=== PATIENT | male | born 1965 | race Caucasian/White ===

== ENCOUNTER 2021-03-01 02:25 | Emergency (ER) | payer BC, SELFPAY ==
--- NOTE | ~2021-03-01 | CT_ITS ---
EXAMINATION: CT abdomen pelvis wo con DATE: 03/01/2021 03:35 INDICATION: Bilateral flank pain. History of kidney stones. TECHNIQUE: Computed tomography (CT) of the abdomen and pelvis was performed without intravenous contr ast. The dose-length product was 229.53 mGy-cm. Automated exposure control and iterative reconstructi on technique were employed. COMPARISON: None. FINDINGS: Right lower lobe atelectasis. Heart size normal. No significant pleural or pericardial effusion. Elev ation of the right diaphragm, suspicious for phrenic nerve paralysis. Small hiatal hernia. There are 2 left mid ureteral stones with mild left hydroureteronephrosis, perinephric edema. Largest stone more proximally measures 5 mm. The liver, spleen, pancreas, adrenal glands and right kidney are unremarkable. There is nonobstructiv e bowel gas pattern. There is a fat-containing umbilical hernia. No significant vascular abnormality. No lymphadenopathy. Nonobstructive bowel gas pattern. Normal appendix. There is subtle chitra appeara nce to the mesentery without associated lymphadenopathy, of doubtful clinical significance. There are persistent surgical changes with laminectomy at L5-S1. IMPRESSION: 1. Left mid ureteral stones with mild hydroureteronephrosis. Stones located at the L4-L5 levels. Reviewed, dictated and finalized at location A.
--- NOTE | ~2021-03-01 | XR_ITS ---
XR abdomen/kub 1V 03/01/2021 04:03 Indication: Kidney stone Procedure: KUB Comparison: CT dated 03/01/2021 Findings: There is a proximal left ureteral stone at the L5 level. Stone measures approximately 5 mm. Bowel gas pattern nonobstructive. Surgical fusion changes with laminectomy at L5-S1. Impression: 1: Proximal left ureteral stone at L5 level measuring 5 mm. Reviewed, dictated and finalized at location A. Impression: 1: Proximal left ureteral stone at L5 level measuring 5 mm.
[2021-03-01 02:27] VITALS: BP 135/76; PULSE 64; RESP 24; TEMP 36.2; O2SAT 100
--- NOTE | 2021-03-01 03:26 | PC.NURSE ---
Pt to CT via stretcher at this time.
[2021-03-01 03:28] LABS: Basophils Absolute Auto 0.1 K/mm3 (0.0-0.1); Basophils Percent Auto 0.8 % (0.2-1.2); Eosinophils Absolute Auto 0.1 K/mm3 (0-0.3); Eosinophils Percent Auto 1.2 % (0-4.4); Hematocrit 49.9 % (42.0-52.0); Hemoglobin 16.6 g/dL (14.0-18.0); Immature Granulocyte Absolute 0.03 K/mm3 (0.00-0.031); Immature Granulocyte Percent A 0.3 % (0-0.5); Lymphocytes Absolute Auto 2.91 K/mm3 (0.9-3.2); Lymphocytes Percent Auto 28.8 % (18.3-44.2); Mean Corpuscular HGB Conc 33.3 g/dl (32-36); Mean Corpuscular Hemoglobin 29.5 pg (26-34); Mean Corpuscular Volume 88.8 fl (80-100); Mean Platelet Volume 10.1 fl (7.4-10.4); Monocytes Absolute Auto 0.7 K/mm3 (0.1-0.6); Monocytes Percent Auto 6.7 % (2.6-8.5); Neutrophils Absolute Auto 6.3 K/mm3 (1.3-6.7); Neutrophils Percent Auto 62.2 % (45.5-73.1); Platelet Count Result 332 k/mm3 (150-375); Red Blood Count 5.62 M/mm3 (4.6-6.20); Red Cell Distribution Width 12.4 % (11.5-14.5); White Blood Count 10.1 K/mm3 (4.5-10.0)
[2021-03-01] MEDS: SODIUM CHLORIDE 0.9% IV 1,000 ML 999 ML IV CONT (03:38)
[2021-03-01 03:39] LABS: Alanine Aminotransferase 32 U/L (4-50); Albumin Level 4.5 g/dL (3.5-5.1); Alkaline Phosphatase 80 U/L (38-126); Anion Gap 13 mmol/L (8-16); Aspartate Amino Transferase 32 U/L (17-59); Blood Urea Nitrogen 22 mg/dL (9-20); Calcium 9.6 mg/dL (8.4-10.2); Carbon Dioxide 24 mmol/L (22-30); Chloride 101 mmol/L (98-107); Estimated CRCL calculation 66 ml/min; Estimated Glomerular Filt Rate > 60; Glucose 133 mg/dL (65-110); Lipase 263 U/L (23-300); Potassium 4.2 mmol/L (3.4-5.0); Sodium 138 mmol/L (137-145)
[2021-03-01] MEDS: ONDANSETRON INJ 4 MG/2 ML VIAL IV PUSH (03:50)
[2021-03-01] MEDS: KETOROLAC 30 MG/ML VIAL (*BKC) IV PUSH (03:50)
[2021-03-01] MEDS: MORPHINE SULFATE (*CRX) 4 MG/ML INJ IV PUSH (03:50)
--- NOTE | 2021-03-01 04:06 | ED.MALEGU ---
HPI - Male Genitourinary General Chief complaint: Urogenital-Male Stated complaint: flank pain Time Seen by Provider: 03/01/21 03:03 History of Present Illness HPI Narrative: Severe paroxysmal left falnk pain since last night. No raidation. Worse with urination Associated with nausea and vomiting. Feels like past kidney stone. No hematuria, dysuria, abdominal pain, fever, CP, SOB. Related Data Home Medications Medication Instructions Recorded Confirmed aspirin 81 mg tablet,delayed 81 mg PO DAILY 01/31/21 03/06/21 release krill oil 1,000 mg-om3 130 mg-dha 1 cap PO DAILY 01/31/21 03/06/21 40 mg-epa 80 [id number]-astax cap Allergies Allergy/AdvReac Type Severity Reaction Status Date / Time No Known Allergies Allergy Verified 01/31/21 14:47 Review of Systems Review of Systems: All systems reviewed & are unremarkable except as noted in HPI and below Cardiovascular: Cardiovascular: Denies chest pain Respiratory: Respiratory: Denies dyspnea Gastrointestinal: Gastrointestinal: Denies abdominal pain, Denies constipation and Denies diarrhea Genitourinary: Genitourinary: Denies hematuria and Denies dysuria Neurologic: Denies dizziness and Denies weakness PMFSH Past Medical History Medical History Smoker Ureterolithiasis Family History Family History Father Hypertension Patient's father is in good health Family history of cardiovascular disease Heart disease Mother Patient's mother is in good health Sibling Patient's sister is in good health Social History Social History Years smoked: 2 Smoking status: Current every day smoker Tobacco type: e-cigarettes/vaping Alcohol intake: current Substance use: never Substance use type: does not use Gender identity (if verbalized by the patient): Male Spiritual care concerns: No Exam Const: General: healthy appearing and alert Orientation/consciousness: patient oriented x3 Other: Mild distress, diaphoretic HENMT: Head: normal to inspection Neck: Neck: normal visual inspection Resp: Effort & Inspection: normal respiratory effort Auscultation: clear to auscultation bilaterally Cardio: Rate: regular rate Rhythm: regular rhythm GI: Inspection: non-distended GI Palp: Yes Soft to palpation and No Tenderness to palpation present (GI) Skin: General skin exam: normal color Neuro: General: patient oriented x3, moves all extremities and no focal motor deficits Extrem: General: normal to inspection Course Vital Signs Vital signs: Vital Signs Temperature 36.2 C L 03/01/21 02:27 Pulse Rate 64 03/01/21 02:27 Respiratory Rate 24 H 03/01/21 02:27 Blood Pressure 135/76 03/01/21 02:27 Pulse Oximetry 100 03/01/21 02:27 Temperature 36.2 C L 03/01/21 02:27 Pulse Rate 66 03/01/21 05:44 Respiratory Rate 14 03/01/21 05:44 Blood Pressure 112/72 03/01/21 05:44 Pulse Oximetry 96 03/01/21 05:44 MDM - Male Genitourinary Differential Diagnosis Differential diagnosis: Likely urinary tract infection, acute retention of urine and other (kidney stone) Medical Records Attestation: I reviewed the patient's medical records. Lab Data Attestation: I reviewed the patient's lab results. Result diagrams: 03/01/21 03:22 03/01/21 03:22 Labs: Lab Results 03/01/21 03/01/21 03/01/21 Range/Units 03:22 03:22 04:29 WBC 10.1 H (4.5-10.0) K/mm3 RBC 5.62 (4.6-6.20) M/mm3 Hgb 16.6 (14.0-18.0) g/dL Hct 49.9 (42.0-52.0) % MCV 88.8 (80-100) fl MCH 29.5 (26-34) pg MCHC 33.3 (32-36) g/dl RDW 12.4 (11.5-14.5) % Plt Count 332 (150-375) k/mm3 MPV 10.1 (7.4-10.4) fl Immature Gran % (Auto) 0.3 (0-0.5) % Neut % (Auto) 62.2 (45.5-73.1) % Lymph % (Auto) 28.8 (18.3-44.2)
[2021-03-01] MEDS: TAMSULOSIN HCL 0.4 MG CAPSULE PO (04:22)
[2021-03-01 04:24] VITALS: BP 114/75; PULSE 74; RESP 16; O2SAT 93
[2021-03-01 04:43] LABS: Add Urine Microscopic? YES; Appearance Urine Clear (Clear); Bilirubin Urine Negative (Negative); Blood Urine 2+ (Negative); Color Urine Yellow (Yellow); Glucose Urine UA Negative (Negative); Ketones Urine Negative (Negative); Leukocyte Esterase Ur Negative LEU/UL (Negative); Mucus Urine Rare /lpf; Nitrate Urine Negative (Negative); Protein Urine Negative (Negative); RBC Urine 21-50 /hpf (0-2); Specific Grav Ur 1.018 (1.001-1.035); Urobilinogen Urine Negative mg/dL (<2.0); WBC Urine 0-3 /hpf
[2021-03-01] MEDS: HYDROcodone/acetaminophen (*CRX) 5-325 MG TABLET 1 TAB PO (05:30)
[2021-03-01 05:44] VITALS: BP 112/72; PULSE 66; RESP 14; O2SAT 96
== END 2021-03-01 05:55 | disposition home or self-care (01) ==
PROVIDERS: Emergency Provider Emergency Medicine; PCP Family Medicine
DX: N13.2 Hydronephrosis with renal and ureteral calculous obstruction (principal); F17.290 Nicotine dependence, other tobacco product, uncomplicated; Z87.442 Personal history of urinary calculi
CPT/HCPCS: 36415; 74018; 74176; 80053; 81001; 83690; 85025; 96361; 96374; 96375; 99284; A9270; J1885; J2270; J2405; J7030

== ENCOUNTER 2021-03-04 14:53 | Outpatient (CLI) | payer BC, SELFPAY ==
--- NOTE | ~2021-03-04 | XR_ITS ---
EXAMINATION: XR abdomen/kub 1V DATE: 03/04/2021 15:13 INDICATION: Left ureteral stone. Left-sided back pain. TECHNIQUE: A supine view of the abdomen on 2 radiographs was obtained. COMPARISON: CT abdomen and pelvis 03/01/2021 FINDINGS: There are no dilated loops of bowel. There are changes of anterior and posterior fusion pro cedures at L5-S1. IMPRESSION: 1. No visible urolithiasis. Reviewed, dictated and finalized at location A. IMPRESSION: 1. No visible urolithiasis.
== END 2021-03-04 14:54 | disposition home or self-care (01) ==
LOC: ANHIMG 14:58
PROVIDERS: PCP Family Medicine; Visit Provider Urology
DX: N20.1 Calculus of ureter (principal)
CPT/HCPCS: 74018

== ENCOUNTER 2021-03-07 01:58 | Day surgery (SDC) | payer BC, SELFPAY ==
[2021-03-06 09:38] VITALS: BMI 24.3
--- NOTE | 2021-03-06 14:58 | WPDANESEPPF ---
Anes - Initial Pre Proc Eval Procedure: Operation Date: 03/07/21 15:30 Proposed Procedures p Cystoscopy, Left Ureteroscopy, Left Retrograde Pyelogram, Left Stone Extraction, Left Stent Placement - Alok Montalvo MD s Holmium Laser Procedure - Alok Montalvo MD Date/Time: 03/06/21 14:58 Surgeon: Alok Montalvo MD Pre Op Diagnosis: Left Ureteral Kidney Stone Patient Data Age: 55 Gender: M Height: 1.78 m Weight: 77 kg Allergies Allergy/AdvReac Type Severity Reaction Status Date / Time No Known Allergies Allergy Verified 01/31/21 14:47 Home Medications Medication Instructions Recorded Confirmed Type aspirin 81 mg tablet,delayed 81 mg PO DAILY 01/31/21 03/06/21 History release krill oil 1,000 mg-om3 130 mg-dha 1 cap PO DAILY 01/31/21 03/06/21 History 40 mg-epa 80 [id number]-astax cap hydrocodone-acetaminophen 1 tablet PO Q6H PRN #14 tablet 03/01/21 03/06/21 Rx ondansetron HCl [Zofran] 4 mg PO Q6H PRN #10 tablet 03/01/21 03/06/21 Rx tamsulosin [Flomax] 0.4 mg PO DAILY #10 cap 03/01/21 03/06/21 Rx Patient hx anesthesia problems: none Family hx anesthesia problems: none PMFSH Past Medical History Medical History (Updated 03/06/21 @ 14:59 by Brendan Mcclelland MD) Smoker Ureterolithiasis Family History Family History Father Hypertension Patient's father is in good health Family history of cardiovascular disease Heart disease Mother Patient's mother is in good health Sibling Patient's sister is in good health Social History Social History Years smoked: 2 Smoking status: Current every day smoker Tobacco type: e-cigarettes/vaping Alcohol intake: current Substance use: never Substance use type: does not use Gender identity (if verbalized by the patient): Male Spiritual care concerns: No Anes - Eval Final PreProcedure Day of Procedure 03/06/21 14:58 Patient weight: normal Heart: regular rate and rhythm Lungs: clear to auscultation and normal air movement Airway: Mallampati scale class II Neurological: alert and oriented Last oral intake: >/= 8 hours ASA classification: II Emergent: no Anesthetic plan: proceed Anesthesia type and monitoring: general LMA Informed Consent: The patient's anesthetic plan and its attendant risks and benefits were discussed with the patient/family/POA. Questions were solicited and answers provided to the satisfaction of the patient/family/POA.
[2021-03-07] VITALS (10 sets, daily range): BP systolic 97–143; BP diastolic 68–83; PULSE 56–72; RESP 13–16; TEMP 36.3–37; O2SAT 91–100; BMI 25.8
--- NOTE | ~2021-03-07 | XR_ITS ---
EXAMINATION: XR retrograde pyelogram LT DATE: 03/07/2021 15:52 INDICATION: Left ureteral stone. TECHNIQUE: 5 intraoperative fluoroscopic views of the abdomen and pelvis were obtained. I was not pre sent. Fluoroscopy exposure time was 29 seconds. COMPARISON: CT abdomen and pelvis 03/01/2021 FINDINGS: The left-sided retrograde pyelogram is unremarkable. There are changes of anterior and post erior fusion procedure at L5-S1. IMPRESSION: 1. Normal left-sided retrograde pyelogram. Reviewed, dictated and finalized at location A.
--- NOTE | 2021-03-07 14:38 | WPDHPUPDATE1 ---
History and Physical Update Update Date/Time: 03/07/21 14:38 History and Physical has been reviewed, including an updated exam of the patient. There are NO changes in the patient's condition. Risks, benefits, and alternatives have been discussed and questions answered. Patient agrees to proceed with procedure.
[2021-03-07] MEDS: LACTATED RINGERS 1,000 ML 30 ML IV CONT ×2 (15:01→16:06)
[2021-03-07] MEDS: ceFAZolin 2 GM/D5W 50 ML 2 GM/50 ML BAG IVPB (15:26)
[2021-03-07] MEDS: LIDOCAINE HCL 2% GEL UROJET 10 ML PKG MUCOUS MEM (15:43)
--- NOTE | 2021-03-07 16:22 | W.PM.PROC2 ---
Procedure Note - Detailed Date of Procedure 03/07/21 Pre-op Diagnosis Left Ureteral Stone Post-op Diagnosis same Procedure Performed Cystoscopy, left retrograde pyelography and left ureteral re-endoscopy Surgeon Alok Montalvo MD Anesthesia general Findings no residual stones in left collecting system her left ureter, suggesting he spontaneously passed recently. Description of Procedure Patient is brought to the op suite where he has prepped draped in routine sterile fashion while in dorsal lithotomy position after the uneventful induction of a general LMA anesthetic. Cystoscopy is undertaken with a 19 F rigid cystoscope. Urethra was without stricture and prostate shows only minimal hyperplasia. The bladder is without foreign body or neoplasm. There is no intravesical mucosal abnormalities. Has a single orthotopic ureteral orifice. 0.035 in glidewire was advanced into his left renal pelvis. Distal ureter was dilated with an 8 F 10 F dilator. Distal ureteroscopy was undertaken with a semi rigid ureteral scope to the iliac vessels. There is no stones identified in the distal ureter. I exchanged the rigid scope for a 7.5 F flexible scope. I did a retrograde pyelogram to ensure that we inspected all calices. Entire collecting system and more proximal ureter carefully inspected and and, again, there are no identifiable stones. I believe this patient is spontaneously passed the 2 stones were identified his left ureter. Drains No Packing No Pathology none sent Complications No immediate complications Condition stable Disposition PACU
[2021-03-07] MEDS: fentaNYL CITRATE INJ (*CRX) 100 MCG/2 ML VIAL 25 MCG IV PUSH (16:37)
[2021-03-07] MEDS: KETOROLAC 30 MG/ML VIAL (*BKC) IV PUSH (17:14)
--- NOTE | 2021-03-07 17:22 | SUR.PHASEII ---
DR. GERBER CALLED FOR PAIN MED. DR. GERBER STATED HE WILL CHECK ON PATIENT BEFORE HE LEAVES.
--- NOTE | 2021-03-07 18:02 | SUR.PHASEII ---
DR. GERBER NOTIFIED THAT PATIENT'S PAIN IS MUCH BETTER; DR. GERBER OKAY'D FOR PATIENT TO GO HOME.
== END 2021-03-07 18:00 | disposition home or self-care (01) ==
PROVIDERS: PCP Family Medicine; Visit Provider Urology
PROC: (CPT 52352; principal; 2021-03-07 15:30)
DX: N20.1 Calculus of ureter (principal); Z79.82 Long term (current) use of aspirin; F17.290 Nicotine dependence, other tobacco product, uncomplicated
CPT/HCPCS: 52005; 74420; A9270; C1769; J0690; J1885; J2250; J3010; J7120; Q9966

== ENCOUNTER 2021-03-07 13:16 | Outpatient (CLI) | payer BC, SELFPAY ==
[2021-03-07 13:50] LABS: EDCOVIDSCREEN Negative (Negative)
== END 2021-03-07 13:17 | disposition home or self-care (01) ==
PROVIDERS: PCP Family Medicine; Visit Provider Urology
DX: Z01.812 Encounter for preprocedural laboratory examination (principal); Z20.822 Contact with and (suspected) exposure to COVID-19
CPT/HCPCS: 87426; C9803

== ENCOUNTER 2021-03-21 18:29 | Emergency (ER) | payer BC, SELFPAY ==
--- NOTE | ~2021-03-21 | XR_ITS ---
XR chest 1V DATE: 03/21/2021 19:50 INDICATION: Cough for 3 days. Covid-positive. TECHNIQUE: PA chest COMPARISON: 03/24/2009 two-view chest FINDINGS: Normal heart size. No hilar or mediastinal enlargement. No pulmonary infiltrate or consolid ation, pleural effusion or pulmonary mass. Erosion or pneumothorax. Included skeletal structures are unremarkable. IMPRESSION: No active cardiopulmonary disease Reviewed, dictated and finalized at location A.
[2021-03-21 19:27] VITALS: BP 125/85; PULSE 80; RESP 18; TEMP 37.3; O2SAT 99
[2021-03-21 20:08] VITALS: BP 150/97; PULSE 88; RESP 18; O2SAT 96
--- NOTE | 2021-03-21 20:39 | ED.URI ---
HPI - URI/Sore Throat General Chief Complaint: Upper Respiratory Infection Stated Complaint: COVID positive 03/11, new cough x 3 days Time Seen by Provider: 03/21/21 19:57 Source: patient and RN notes reviewed Mode of arrival: ambulatory Limitations: no limitations History of Present Illness HPI Narrative: This is a 55 year old male who presents for evaluation of cough. Patient reports he had a fever on 03/11/21 so he was tested for covid, and it returned as positive. He also reports scalp sensitivity and itchy throat and pain with swallowing at that time. He reports those symptoms have mostly resolved but he developed a mild cough 2 days ago. He reports cough with clear phlegm along with nasal drainage. He denies sob or chest pain or fever. He states his spoke with his PCP and he was prescribed dexamethasone , azithromycin and Valtrex. He came to ER because he wanted to make sure nothing serious was going on. He states he is afraid to . Related Data Home Medications Medication Instructions Recorded Confirmed aspirin 81 mg tablet,delayed 81 mg PO DAILY 01/31/21 03/06/21 release krill oil 1,000 mg-om3 130 mg-dha 1 cap PO DAILY 01/31/21 03/06/21 40 mg-epa 80 [id number]-astax cap Allergies Allergy/AdvReac Type Severity Reaction Status Date / Time No Known Allergies Allergy Verified 03/21/21 20:15 Review of Systems Review of Systems: All systems reviewed & are unremarkable except as noted in HPI and below PMFSH Past Medical History Medical History Smoker Ureterolithiasis Family History Family History Father Hypertension Patient's father is in good health Family history of cardiovascular disease Heart disease Mother Patient's mother is in good health Sibling Patient's sister is in good health Social History Social History Years smoked: 2 Smoking status: Current every day smoker Tobacco type: e-cigarettes/vaping Alcohol intake: current Substance use: never Substance use type: does not use Gender identity (if verbalized by the patient): Female Spiritual care concerns: No Exam Const: General: no acute distress and alert Orientation/consciousness: patient oriented x3 HENMT: Head: normocephalic and atraumatic Ears: TM's normal bilaterally Face and sinus: normal facial exam and face symmetric Mouth: Yes Normal oral and palatal mucosa present, Yes lip normal, Yes oropharynx normal and Yes moist mucous membranes Throat: posterior oropharynx normal, tonsils normal and uvula midline Eyes: EOM: EOMs intact bilaterally Resp: Effort & Inspection: normal respiratory effort and no retractions Auscultation: clear to auscultation bilaterally Cardio: Rate: regular rate Rhythm: regular rhythm Heart sounds: no murmurs GI: GI Palp: Yes Soft to palpation, No Tenderness to palpation present (GI) and No Guarding due to palpation present (GI) Auscultation: normal bowel sounds Skin: General skin exam: normal color Rashes: no rashes Neuro: General: patient oriented x3, moves all extremities and CN's II-XI intact bilaterally Psych: Mental Status: mental status grossly normal Affect: normal affect Course Reevaluation(s) Reevaluation #1: I discussed with patient chest xray is clear at this time. I will prescribe inhaler and cough medications. Date: 03/21/21 Time: 20:42 Vital Signs Vital signs: Vital Signs Temperature 99.1 F 03/21/21 19:27 Pulse Rate 80 03/21/21 19:27 Respiratory Rate 18 03/21/21 19:27 Blood Pressure 125/85 03/21/21 19:27 Pulse Oximetry 99 03/21/21 19:27 Temperature 99.1 F 03/21/21 19:27 Pulse Rate 70 03/21/21 21:22 Respiratory Rate 18 03/21/21 21:22 Blood Pressure 131/85 03/21/21 21:22 Pulse Oximetry 97 03/21/21 21:22 MDM - URI/Sore Throat
[2021-03-21 21:22] VITALS: BP 131/85; PULSE 70; RESP 18; O2SAT 97
== END 2021-03-21 21:24 | disposition home or self-care (01) ==
PROVIDERS: Emergency Provider General Practice; PCP Family Medicine
DX: U07.1 COVID-19 (principal); R05 Cough; Z79.82 Long term (current) use of aspirin; F17.290 Nicotine dependence, other tobacco product, uncomplicated
CPT/HCPCS: 71045; 99283